=== PATIENT | male | born 1970 | race Caucasian/White ===

== ENCOUNTER → 2018-05-22 | Outpatient (CLI) | payer OTHER ==
--- NOTE | 2018-05-23 08:21 | TST ---
[place] [address] [employer] STRESS TEST Name: RADHA LASSITER Room: [facility]#: [id number] Admission: 05/22/18 Attend Phys: BRISEYDA Sifuentes NP HO Discharge: Date of : 66 Date of Service: 05/22/18 1615 Report #: [id number] THIS REPORT FOR: //name// CC: Torsten Matos NP REFERRING PROVIDER: Briseyda Lugo, nurse practitioner. INDICATION: Abnormal EKG. PROCEDURE: Standard Rakan protocol exercise stress test. CORONARY HISTORY: None. RISK FACTORS: Age greater than 55, hyperlipidemia, hypertension, tobacco use and family history of coronary artery disease. CARDIAC MEDICATIONS: Lisinopril. DESCRIPTION OF PROCEDURE: The patient exercised per standard Rakan protocol for a total of 6 minutes and 49 seconds. Exercise was stopped due to elevated blood pressure. The patient did not have any significant chest pain or dyspnea with exercise. Resting blood pressure was 154/96 mmHg with a resting heart rate of 89 beats per minute. At peak stress, the blood pressure was 256/86 mmHg with a peak stress, heart rate of 160 beats per minute. In recovery, the blood pressure was 151/101 with a recovery heart rate 100 beats per minute. The baseline 12-lead EKG shows sinus rhythm with no significant ST or T-wave abnormalities. EKGs obtained during and post-exercise shows sinus rhythm and sinus tachycardia with no significant ST or T-wave changes when compared to baseline. There were no stress-induced arrhythmias. IMPRESSION: 1. Hypertensive response to exercise, necessitating discontinuing exercise. 2. Standard Rakan protocol exercise stress test shows no EKG or clinical evidence of stress-induced ischemia. <ELECTRONICALLY SIGNED> By: Cody Sapp MD, FACC 05/23/18 0821 1615 [id number] Cody Sapp MD, FACC /nt
== END ==
LOC: M.CRD 12:33
DX: R94.31 Abnormal electrocardiogram [ECG] [EKG] (principal)